=== PATIENT | male | born 1960 | race Caucasian/White ===

== ENCOUNTER 2019-02-27 07:47 | Day surgery (SDC) | payer BC ==
[2019-02-24 11:33] VITALS: BMI 26.2
[~2019-02-27 07:47] MED LIST: LACTATED RINGERS 1,000 ML IV SCH; LIDOCAINE 1% 20 ML VIAL (10MG/ML) FOR IV START INTRADERMA PRN
[2019-02-27 08:09] VITALS: TEMP 97.7
[2019-02-27] MEDS ORDERED: PROPOFOL 10 MG/ML 20 ML VIAL IV ONE (08:27)
[2019-02-27] MEDS ORDERED: LIDOCAINE 1% INJ 10MG/ML (20 ML MDV) ONE (08:27)
--- NOTE | 2019-02-27 09:00 | P.PCN ---
Date of Procedure: 02/27/19 Description of Procedure: BRIEF HISTORY: Patient is a 58-year-old pleasant male scheduled for an elective colonoscopy as a part of screening for malignant neoplasm of the colon. Patient reports 1 prior colonoscopy approximately 10 years ago which he believes was significant for polyps. Denies any abdominal pain, change in bowel habits, diarrhea or constipation in the last 6 months. Denies any family history of colon cancer. Does report intermittent blood with wiping. PROCEDURE PERFORMED: Colonoscopy with polypectomy. PREOPERATIVE DIAGNOSIS: Screening for malignant neoplasm of the colon, last colonoscopy 10 years ago, personal history of colon polyps by report. ESTIMATED BLOOD LOSS: Minimal. IV sedation per Anesthesia. PROCEDURE: After informed consent was obtained, the patient, was brought into the endoscopy unit. IV sedation was administered by Anesthesia under continuous monitoring. Digital rectal examination was normal. Initially the Olympus CF-190 flexible video colonoscope was then inserted in the rectum, gradually advanced into the cecum without any difficulty. Careful examination was performed as the scope was gradually being withdrawn. Ileocecal valve and the appendiceal orifice were visualized and appeared normal. The terminal ileum was intubated and appeared normal. Retroflexion in the cecum with no polyps noted. Prep was excellent. Mucosa of the cecum, ascending colon, transverse colon, descending colon, sigmoid colon, and rectum appeared normal. Diminutive 2 mm sessile polyp on the ileocecal valve removed with cold forcep polypectomy. Diminutive 3 mm sessile polyp in the transverse colon removed with cold forcep polypectomy. Mild scattered sigmoid diverticulosis. Retroflexion was performed in the rectum and no lesions were seen mild internal hemorrhoids. The patient tolerated the procedure well. IMPRESSION: 2 diminutive polyps in the transverse colon and on the ileocecal valve removed with cold forcep polypectomy. Mild sigmoid diverticulosis. Mild internal hemorrhoids. RECOMMENDATIONS: Findings of this examination were discussed with the patient his . Okay to resume high-fiber diet. Okay to resume medications. Anticipate repeat colonoscopy in 5 years pending pathology for polypectomy.
[2019-02-27 09:26] VITALS: BP 106/73; PULSE 58; RESP 18
== END 2019-02-27 09:59 | disposition home or self-care (01) ==
LOC: ORWHC2ENDO 07:47
PROVIDERS: ATTEND Internal Medicine
DX: Z12.11 Encounter for screening for malignant neoplasm of colon (principal); D12.3 Benign neoplasm of transverse colon; K57.30 Diverticulosis of large intestine without perforation or abscess without bleeding; K64.8 Other hemorrhoids; Z86.010 Personal history of colon polyps; Z79.82 Long term (current) use of aspirin; Z79.899 Other long term (current) drug therapy; I25.2 Old myocardial infarction; I25.10 Atherosclerotic heart disease of native coronary artery without angina pectoris; Z87.891 Personal history of nicotine dependence; E78.5 Hyperlipidemia, unspecified; I10 Essential (primary) hypertension
CPT/HCPCS: 88305; 45380; J2001; J2704

== ENCOUNTER 2022-11-04 13:43 | Inpatient (IN) | payer BC ==
[2022-11-04] MEDS ORDERED: HYDROcodone/APAP 5-325MG 1 EACH TAB PO PRN (16:19)
[2022-11-04] MEDS ORDERED: HYDROmorphone 0.5 MG/0.5 ML SYRINGE IVP PRN (16:19)
[2022-11-04] MEDS ORDERED: ACETAMINOPHEN TAB 325 MG TAB PO PRN (16:19)
[2022-11-04] MEDS ORDERED: TEMAZEPAM 15 MG CAP PO PRN (16:19)
[2022-11-04] MEDS ORDERED: NALOXONE 0.4 MG/ML 1 ML VIAL IV PRN (16:19)
[2022-11-04] MEDS ORDERED: ALPRAZolam 0.5 MG TAB PO PRN (16:24)
--- NOTE | 2022-11-04 17:03 | XR ---
EXAMINATION TYPE: XR chest 1V DATE OF EXAM: 11/04/2022 HISTORY: Shortness of breath. COMPARISON: None. TECHNIQUE: Single view of the chest is submitted. FINDINGS: Demonstrated are scattered senescent parenchymal change. There is no evidence for focal infiltrate. The heart is stable. Hilar and mediastinal structures are within normal limits. Degenerative changes are seen of the dorsal spine. IMPRESSION: 1. Chronic changes without evidence for acute pulmonary disease.
[2022-11-04] MEDS: SODIUM CHLORIDE 0.9% 1,000 ML IV SCH (17:14)
[2022-11-04] MEDS ORDERED: HEPARIN SODIUM 1,000 UN/ML (10ML VL) IV PRN (17:31)
[2022-11-04 17:51] LABS: Basophils % (A) 0 %; Eosinophils # (A) 0.1 k/uL (0-0.7); Eosinophils % (A) 2 %; HCT 45.1 % (39.0-53.0); HGB 14.7 gm/dL (13.0-17.5); Lymphocytes # (A) 2.1 k/uL (1.0-4.8); Lymphocytes % (A) 25 %; MCH 31.7 pg (25.0-35.0); MCHC 32.6 g/dL (31.0-37.0); MCV 97.4 fL (80.0-100.0); Mean Platelet Volume 8.9; Monocytes # (A) 0.6 k/uL (0-1.0); Monocytes % (A) 7 %; Neutrophils # (A) 5.4 k/uL (1.3-7.7); Neutrophils % (A) 65 %; Platelet Count 211 k/uL (150-450); RBC 4.63 m/uL (4.30-5.90); WBC 8.3 k/uL (3.8-10.6)
[2022-11-04] MEDS: HEPARIN SOD,PORK IN 0.45% NACL 25,000 UNIT in 0.45% NACL 1 250ML.BAG IV SCH (18:05)
[2022-11-04 18:21] LABS: Partial Thromboplastin Time 41.5 sec (22.0-30.0); Prothrombin Time 10.7 sec (9.0-12.0)
[2022-11-04 19:05] LABS: ALT 27 U/L (4-49); AST 27 U/L (17-59); African American GFR (CKD) >90 (>60 ml/min/1.73 sqM); Albumin 4.1 g/dL (3.5-5.0); Alkaline Phosphatase 51 U/L (38-126); Anion Gap 7 mmol/L; Blood Urea Nitrogen 17 mg/dL (9-20); Calcium 9.2 mg/dL (8.4-10.2); Carbon Dioxide 28 mmol/L (22-30); Chloride 104 mmol/L (98-107); Glucose 132 mg/dL (74-99); Non-African American GFR(CKD) >90 (>60 ml/min/1.73 sqM); Potassium 4.3 mmol/L (3.5-5.1); Sodium 139 mmol/L (137-145); Total Bilirubin 0.3 mg/dL (0.2-1.3); Total Protein 6.6 g/dL (6.3-8.2)
[2022-11-04] MEDS: MULTIVITAMINS, THERA 1 EACH TAB PO SCH (20:07)
[2022-11-04] MEDS: ASPIRIN 81 MG PO SCH (20:07)
[2022-11-04] MEDS: ALPRAZolam 0.25 MG TAB PO PRN (23:07)
[2022-11-05] MEDS: SPIRONOLACTONE 25 MG TAB PO SCH (06:10)
[2022-11-05] MEDS: SODIUM CHLORIDE 0.9% 1,000 ML IV SCH ×2 (06:15→18:24)
[2022-11-05] MEDS: ATORVASTATIN 20 MG TAB PO SCH (06:28)
[2022-11-05] MEDS: METOPROLOL SUCCINATE (ER) 25 MG TAB.ER.24H PO SCH (06:28)
[2022-11-05] MEDS: lisinopriL 5 MG TAB PO SCH (06:28)
[2022-11-05 07:48] LABS: Basophils % (A) 0 %; Eosinophils # (A) 0.2 k/uL (0-0.7); Eosinophils % (A) 2 %; HCT 44.4 % (39.0-53.0); HGB 14.7 gm/dL (13.0-17.5); Lymphocytes # (A) 1.9 k/uL (1.0-4.8); Lymphocytes % (A) 27 %; MCH 32.4 pg (25.0-35.0); MCHC 33.2 g/dL (31.0-37.0); MCV 97.7 fL (80.0-100.0); Mean Platelet Volume 8.1; Monocytes # (A) 0.4 k/uL (0-1.0); Monocytes % (A) 6 %; Neutrophils # (A) 4.3 k/uL (1.3-7.7); Neutrophils % (A) 62 %; Platelet Count 177 k/uL (150-450); RBC 4.54 m/uL (4.30-5.90); RDW 13.3 % (11.5-15.5); WBC 6.9 k/uL (3.8-10.6)
[2022-11-05] MEDS ORDERED: IV FLUID CONTINUATION 1,000 ML IV ONE (08:12)
[2022-11-05 08:45] LABS: ALT 30 U/L (4-49); AST 31 U/L (17-59); African American GFR (CKD) >90 (>60 ml/min/1.73 sqM); Albumin 3.8 g/dL (3.5-5.0); Alkaline Phosphatase 52 U/L (38-126); Anion Gap 4 mmol/L; Blood Urea Nitrogen 15 mg/dL (9-20); Carbon Dioxide 29 mmol/L (22-30); Chloride 105 mmol/L (98-107); Glucose 93 mg/dL (74-99); Non-African American GFR(CKD) >90 (>60 ml/min/1.73 sqM); Potassium 4.4 mmol/L (3.5-5.1); Sodium 138 mmol/L (137-145); Total Bilirubin 0.5 mg/dL (0.2-1.3); Total Protein 6.2 g/dL (6.3-8.2)
--- NOTE | 2022-11-05 09:09 | P.GSCN ---
History of Present Illness Consult date: 11/05/22 Reason for Consult: right brachial artery occlusion Requesting physician: Bing Singh History of present illness: 62 year old gentleman with history of CAD presented to [facility] with acute onset of numbness of the right arm with worsening pain. He was admitted to that hospital and underwent CTA of the upper extremity which demonstrated thrombosis of the right brachial, radial and ulnar artery. He was seen the following day by the vascular surgeon there after he was started on heparin drip and his symptoms started to improve slightly with increased signal in the radial and ulnar arteries. Due to the need for possible thrombectomy and peripheral intervention which [facility] is not equipped for he was then transferred to [facility]. He states last night his hand began to improve and the numbness has been improving. He states his hand feels good and his strength has improved as well. He denies any fevers, chills, chest pain or shortness of breath. Review of Systems All systems: negative (what is mentioned in the PMH or HPI) Past Medical History Past Medical History: Hyperlipidemia, Hypertension, Myocardial Infarction ([place]) Last Myocardial Infarction Date:: 2008 History of Any Multi-Drug Resistant Organisms: None Reported Past Surgical History: Heart Catheterization With Stent Additional Past Surgical History / Comment(s): rt wrist surgery, "cardiac stents were placed: x2 in left and x1 in the right" Past Anesthesia/Blood Transfusion Reactions: No Reported Reaction Date of Last Stent Placement:: 2008 Past Psychological History: No Psychological Hx Reported Smoking Status: Former smoker Past Alcohol Use History: Rare Past Drug Use History: None Reported - Past Family History Father Family Medical History: CVA/TIA, Deep Vein Thrombosis (DVT) Mother Family Medical History: CVA/TIA, Diabetes Mellitus Medications and Allergies Home Medications Medication Instructions Recorded Confirmed Type ALPRAZolam [Xanax] 0.5 mg PO TID PRN 02/24/19 11/04/22 History Aspirin [Adult Low Dose Aspirin EC] 81 mg PO HS 02/24/19 11/04/22 History Metoprolol Succinate [Toprol XL] 25 mg PO DAILY 02/24/19 11/04/22 History Multivitamins, Thera [Multivitamin 1 tab PO HS 02/24/19 11/04/22 History (formulary)] Simvastatin 40 mg PO DAILY 02/24/19 11/04/22 History Spironolactone 25 mg PO DAILY 02/24/19 11/04/22 History lisinopriL [Zestril] 5 mg PO DAILY 02/24/19 11/04/22 History Zolpidem Tartrate [Ambien] 10 mg PO HS PRN 11/04/22 11/04/22 History Allergies Allergy/AdvReac Type Severity Reaction Status Date / Time No Known Allergies Allergy Verified 11/04/22 18:16 Surgical - Exam Vital Signs Temp Pulse Resp BP Pulse Ox 96.2 F L 63 20 127/74 96 11/04/22 15:44 11/04/22 15:44 11/04/22 15:44 11/04/22 15:44 11/04/22 15:44 - General well developed, well nourished, no distress - Eyes PERRL, normal ocular movement - ENT normal pinna, normal nares - Neck no masses - Respiratory normal expansion, normal respiratory effort - Cardiovascular Rhythm: regular - Integumentary no rash, no growths - Neurologic numbness of the distal tips of 3rd and 4th fingers normal coordination - Psychiatric oriented to time, oriented to person, oriented to place, speech is normal Results - Labs 11/05/22 07:20 11/04/22 18:38 Abnormal Lab Results - Last 24 Hours (Table) 11/04/22 11/04/22 11/04/22 Range/Units 17:05 18:38 23:50 APTT 41.5 H 40.3 H (22.0-30.0) sec Glucose 132 H (74-99) mg/dL 11/05/22 Range/Units 07:20 APTT 62.7 H (22.0-30.0) sec Glucose (74-99) mg/dL Diabetes panel 11/04/22 Range/Units 18:38 Sodium 139 (137-145) mmol/L Potassium 4.3 (3.5-5.1) mmol/L Chloride 104 (98-107) mmol/L Carbon Dioxide 28 (22-30) mmol/L BUN 17 (9-20) mg/dL Creatinine 0.74 (0.66-1.25) mg/dL Glucose 132 H (74-99) mg/dL Calcium 9.2 (8.4-10.2) mg/dL AST 27 (17-59) U/L ALT 27 (4-49) U/L Alkaline Phosphatase 51 (38-126) U/L Total Protein 6.6 (6.3-8.2) g/dL Albumin 4.1 (3.5-5.0) g/dL Calcium panel 11/04/22 Range/Units 18:38 Calcium 9.2 (8.4-10.2) mg/dL Albumin 4.1 (3.5-5.0) g/dL Pituitary panel 11/04/22 Range/Units 18:38 Sodium 139 (137-145) mmol/L Potassium 4.3 (3.5-5.1) mmol/L Chloride 104 (98-107) mmol/L Carbon Dioxide 28 (22-30) mmol/L BUN 17 (9-20) mg/dL Creatinine 0.74 (0.66-1.25) mg/dL Glucose 132 H (74-99) mg/dL Calcium 9.2 (8.4-10.2) mg/dL Adrenal panel 11/04/22 Range/Units 18:38 Sodium 139 (137-145) mmol/L Potassium 4.3 (3.5-5.1) mmol/L Chloride 104 (98-107) mmol/L Carbon Dioxide 28 (22-30) mmol/L BUN 17 (9-20) mg/dL Creatinine 0.74 (0.66-1.25) mg/dL Glucose 132 H (74-99) mg/dL Calcium 9.2 (8.4-10.2) mg/dL Total Bilirubin 0.3 (0.2-1.3) mg/dL AST 27 (17-59) U/L ALT 27 (4-49) U/L Alkaline Phosphatase 51 (38-126) U/L Total Protein 6.6 (6.3-8.2) g/dL Albumin 4.1 (3.5-5.0) g/dL Assessment and Plan Assessment: Acute right upper extremity arterial occlusion- improving History of CAD with previous cardiac stents Plan: Upon examination this morning patient has a brachial pulse and multiphasic flow to the radial and ulnar arteries as well as the palmar arch. Hand is warmer now. Evaluated with Dr. Hatfield who states exam is improved. Will hold off any surgery at this time and repeat CTA of the right upper extremity. Patient will require workup for atrial fibrillation and this was discussed with him and his . Recommend oral anticoagulation for at least 1 month and then outpatient arterial Doppler. Thank you for the consultation.
--- NOTE | 2022-11-05 09:37 | P.GSCN ---
History of Present Illness History of present illness: 62-year-old gentleman patient came to ER with history of numbness and cold feeling right hand patient had a CTA which showed occlusion of the brachial artery on the right side and ulnar and radial artery. Patient was on heparin after heparin hand becomes less painful but patient had a no Doppler signal in the brachial radial ulnar artery. Patient has history of coronary artery disease post coronary artery stent placed in the past. Case discussed with the Dr. Cristobal today with we are planning to take patient to go for for possible thrombectomy. His hand is much better today and her brachial radial arterial present by the Doppler signal. Patient has no previous history of atrial fibrillation Neck is supple no bruit appreciated Chest is clear good and both lungs first and second sound present Abdomen is soft nontender Right arm and right hand is warm radial and ulnar artery but the Doppler discussed with Dr. Michael cristobal we will order a CBC PCTA of the right arm with contrast patient will be continued on heparin we'll hold the surgery Past Medical History Past Medical History: Hyperlipidemia, Hypertension, Myocardial Infarction ([place]) Last Myocardial Infarction Date:: 2008 History of Any Multi-Drug Resistant Organisms: None Reported Past Surgical History: Heart Catheterization With Stent Additional Past Surgical History / Comment(s): rt wrist surgery, "cardiac stents were placed: x2 in left and x1 in the right" Past Anesthesia/Blood Transfusion Reactions: No Reported Reaction Date of Last Stent Placement:: 2008 Past Psychological History: No Psychological Hx Reported Smoking Status: Former smoker Past Alcohol Use History: Rare Past Drug Use History: None Reported - Past Family History Father Family Medical History: CVA/TIA, Deep Vein Thrombosis (DVT) Mother Family Medical History: CVA/TIA, Diabetes Mellitus Medications and Allergies Home Medications Medication Instructions Recorded Confirmed Type ALPRAZolam [Xanax] 0.5 mg PO TID PRN 02/24/19 11/04/22 History Aspirin [Adult Low Dose Aspirin EC] 81 mg PO HS 02/24/19 11/04/22 History Metoprolol Succinate [Toprol XL] 25 mg PO DAILY 02/24/19 11/04/22 History Multivitamins, Thera [Multivitamin 1 tab PO HS 02/24/19 11/04/22 History (formulary)] Simvastatin 40 mg PO DAILY 02/24/19 11/04/22 History Spironolactone 25 mg PO DAILY 02/24/19 11/04/22 History lisinopriL [Zestril] 5 mg PO DAILY 02/24/19 11/04/22 History Zolpidem Tartrate [Ambien] 10 mg PO HS PRN 11/04/22 11/04/22 History Allergies Allergy/AdvReac Type Severity Reaction Status Date / Time No Known Allergies Allergy Verified 11/04/22 18:16 Surgical - Exam Vital Signs Temp Pulse Resp BP Pulse Ox 96.2 F L 63 20 127/74 96 11/04/22 15:44 11/04/22 15:44 11/04/22 15:44 11/04/22 15:44 11/04/22 15:44 Results - Labs 11/05/22 07:20 11/05/22 07:20 Abnormal Lab Results - Last 24 Hours (Table) 11/04/22 11/04/22 11/04/22 Range/Units 17:05 18:38 23:50 APTT 41.5 H 40.3 H (22.0-30.0) sec Glucose 132 H (74-99) mg/dL Total Protein (6.3-8.2) g/dL 11/05/22 11/05/22 Range/Units 07:20 07:20 APTT 62.7 H (22.0-30.0) sec Glucose (74-99) mg/dL Total Protein 6.2 L (6.3-8.2) g/dL Diabetes panel 11/04/22 11/05/22 Range/Units 18:38 07:20 Sodium 139 138 (137-145) mmol/L Potassium 4.3 4.4 (3.5-5.1) mmol/L Chloride 104 105 (98-107) mmol/L Carbon Dioxide 28 29 (22-30) mmol/L BUN 17 15 (9-20) mg/dL Creatinine 0.74 0.83 (0.66-1.25) mg/dL Glucose 132 H 93 (74-99) mg/dL Calcium 9.2 9.0 (8.4-10.2) mg/dL AST 27 31 (17-59) U/L ALT 27 30 (4-49) U/L Alkaline Phosphatase 51 52 (38-126) U/L Total Protein 6.6 6.2 L (6.3-8.2) g/dL Albumin 4.1 3.8 (3.5-5.0) g/dL Calcium panel 11/04/22 11/05/22 Range/Units 18:38 07:20 Calcium 9.2 9.0 (8.4-10.2) mg/dL Albumin 4.1 3.8 (3.5-5.0) g/dL Pituitary panel 11/04/22 11/05/22 Range/Units 18:38 07:20 Sodium 139 138 (137-145) mmol/L Potassium 4.3 4.4 (3.5-5.1) mmol/L Chloride 104 105 (98-107) mmol/L Carbon Dioxide 28 29 (22-30) mmol/L BUN 17 15 (9-20) mg/dL Creatinine 0.74 0.83 (0.66-1.25) mg/dL Glucose 132 H 93 (74-99) mg/dL Calcium 9.2 9.0 (8.4-10.2) mg/dL Adrenal panel 11/04/22 11/05/22 Range/Units 18:38 07:20 Sodium 139 138 (137-145) mmol/L Potassium 4.3 4.4 (3.5-5.1) mmol/L Chloride 104 105 (98-107) mmol/L Carbon Dioxide 28 29 (22-30) mmol/L BUN 17 15 (9-20) mg/dL Creatinine 0.74 0.83 (0.66-1.25) mg/dL Glucose 132 H 93 (74-99) mg/dL Calcium 9.2 9.0 (8.4-10.2) mg/dL Total Bilirubin 0.3 0.5 (0.2-1.3) mg/dL AST 27 31 (17-59) U/L ALT 27 30 (4-49) U/L Alkaline Phosphatase 51 52 (38-126) U/L Total Protein 6.6 6.2 L (6.3-8.2) g/dL Albumin 4.1 3.8 (3.5-5.0) g/dL
--- NOTE | 2022-11-05 10:49 | P.CRDCN ---
History of Present Illness History of present illness: HISTORY OF PRESENT ILLNESS: This is a 62-year-old male with a past medical history significant for hypertension, hyperlipidemia, and coronary artery disease with previous myocardial infection 2009 with stent placement 3. Patient follows with a building rental superintendent in [place]. We have been asked to see the patient in consultation for vessel occlusion. Patient examined at the bedside. Patient initially presented to [facility] secondary to right arm feeling cold and being numb. Patient was found to have a right brachial artery thrombus. Patient was initially scheduled for right brachial artery thrombectomy with vascular surgery. However the patients extremity has improved this morning and has a pulse present. His surgery has been canceled for now. He remains on IV heparin. No evidence of atrial fibrillation on telemetry * EKG reveals sinus mechanism with no signs of acute ischemia * Chest xray chronic changes without evidence for acute pulmonary process * Laboratory data: WBC 6.9. Hemoglobin 14.7. Platelet count 177. Sodium 138. Potassium 4.4. BUN 15. Creatinine 0.83. * Current home cardiac medications include aspirin 81 mg at night, metoprolol succinate 25 mg daily, simvastatin 40 mg daily, spironolactone 25 mg daily, and lisinopril 5 mg daily REVIEW OF SYSTEMS: At the time of my exam: CONSTITUTIONAL: Denies fever or chills. HEENT: Denies blurred vision, vision changes, or eye pain. Denies hemoptysis CARDIOVASCULAR: Denies chest pain. Denies orthopnea. Denies PND. Denies palpitations RESPIRATORY: Denies shortness of breath. GASTROINTESTINAL: Denies abdominal pain. Denies nausea or vomiting. HEMATOLOGIC: Denies bleeding disorders. GENITOURINARY: Denies any blood in urine. SKIN: Denies pruitis. Denies rash. PHYSICAL EXAM: VITAL SIGNS: Reviewed. GENERAL: Well-developed in no acute distress. HEENT: Head is normocephalic. Pupils are equal, round. Sclerae anicteric. Mucous membranes of the mouth are moist. Neck supple. No JVD or thyromegaly LUNGS: Respirations even and unlabored. Lungs essentially clear to auscultation bilaterally. HEART: Regular rate and rhythm. S1 and S2 heard. ABDOMEN: Soft. Nondistended. Nontender. EXTREMITIES: Normal range of motion. No clubbing or cyanosis. Peripheral pulses intact. No lower extremity edema NEUROLOGIC: Awake and alert. Oriented x 3. ASSESSMENT: Right brachial artery thrombosis Coronary artery disease with previous stenting 2008 Hypertension Hyperlipidemia PLAN: Obtain 2-D echo to assess cardiac structure and function Continue telemetry monitoring to assess for any evidence of atrial fibrillation Resume home cardiac medications Vascular surgery following. CTA ordered for today. Further recommendations pending patient's course Nurse practitioner note has been reviewed by physician. Signing provider agrees with the documented findings, assessment, and plan of care. Past Medical History Past Medical History: Hyperlipidemia, Hypertension, Myocardial Infarction ([place]) Last Myocardial Infarction Date:: 2008 History of Any Multi-Drug Resistant Organisms: None Reported Past Surgical History: Heart Catheterization With Stent Additional Past Surgical History / Comment(s): rt wrist surgery, "cardiac stents were placed: x2 in left and x1 in the right" Past Anesthesia/Blood Transfusion Reactions: No Reported Reaction Date of Last Stent Placement:: 2008 Past Psychological History: No Psychological Hx Reported Smoking Status: Former smoker Past Alcohol Use History: Rare Past Drug Use History: None Reported - Past Family History Father Family Medical History: CVA/TIA, Deep Vein Thrombosis (DVT) Mother Family Medical History: CVA/TIA, Diabetes Mellitus Medications and Allergies Home Medications Medication Instructions Recorded Confirmed Type ALPRAZolam [Xanax] 0.5 mg PO TID PRN 02/24/19 11/04/22 History Aspirin [Adult Low Dose Aspirin EC] 81 mg PO HS 02/24/19 11/04/22 History Metoprolol Succinate [Toprol XL] 25 mg PO DAILY 02/24/19 11/04/22 History Multivitamins, Thera [Multivitamin 1 tab PO HS 02/24/19 11/04/22 History (formulary)] Simvastatin 40 mg PO DAILY 02/24/19 11/04/22 History Spironolactone 25 mg PO DAILY 02/24/19 11/04/22 History lisinopriL [Zestril] 5 mg PO DAILY 02/24/19 11/04/22 History Zolpidem Tartrate [Ambien] 10 mg PO HS PRN 11/04/22 11/04/22 History Allergies Allergy/AdvReac Type Severity Reaction Status Date / Time No Known Allergies Allergy Verified 11/04/22 18:16 Physical Exam Vitals: Vital Signs Temp Pulse Resp BP Pulse Ox 04/09/23 04:00 97.7 F 74 18 119/78 94 L 11/05/22 02:00 72 18 11/05/22 00:00 98.0 F 72 18 123/81 96 11/04/22 20:00 59 L 18 118/77 98 11/04/22 17:39 97.7 F 77 18 119/79 97 11/04/22 15:44 96.2 F L 63 20 127/74 96 Intake and Output 11/04/22 11/05/22 11/05/22 22:59 06:59 14:59 Intake Total 81.192 70.236 Balance 81.192 70.236 Intake: IV 75 Sodium Chloride 0.9% 1, 75 000 ml @ 75 mls/hr IV . [id number] [facility] Rx#:[id number] Intake, IV Titration 6.192 70.236 Amount Heparin Sod,Pork in 0.45% 6.192 70.236 NaCl 25,000 unit In 0.45 % NaCl 1 250ml.bag @ 10.8 UNITS/KG/HR 8.845 mls/hr IV .Q24H [facility] Rx#: [id number] Other: Voiding Method Toilet Toilet # Voids 1 1 # Bowel Movements 1 Weight 81.9 kg Results 11/05/22 07:20 11/05/22 07:20 Cardiac Enzymes 11/04/22 Range/Units 18:38 AST 27 (17-59) U/L Coagulation 11/04/22 11/04/22 Range/Units 17:05 23:50 PT 10.7 (9.0-12.0) sec APTT 41.5 H 40.3 H (22.0-30.0) sec CBC 11/04/22 11/05/22 Range/Units 17:05 07:20 WBC 8.3 6.9 (3.8-10.6) k/uL RBC 4.63 4.54 (4.30-5.90) m/uL Hgb 14.7 14.7 (13.0-17.5) gm/dL Hct 45.1 44.4 (39.0-53.0) % Plt Count 211 177 (150-450) k/uL Comprehensive Metabolic Panel 11/04/22 Range/Units 18:38 Sodium 139 (137-145) mmol/L Potassium 4.3 (3.5-5.1) mmol/L Chloride 104 (98-107) mmol/L Carbon Dioxide 28 (22-30) mmol/L BUN 17 (9-20) mg/dL Creatinine 0.74 (0.66-1.25) mg/dL Glucose 132 H (74-99) mg/dL Calcium 9.2 (8.4-10.2) mg/dL AST 27 (17-59) U/L ALT 27 (4-49) U/L Alkaline Phosphatase 51 (38-126) U/L Total Protein 6.6 (6.3-8.2) g/dL Albumin 4.1 (3.5-5.0) g/dL Current Medications Generic Name Dose Route Start Last Admin Trade Name Freq PRN Reason Stop Dose Admin Acetaminophen 650 mg 11/04/22 16:19 Acetaminophen Tab 325 Mg Tab PO Q6HR PRN Mild Pain or Fever > 100.5 Hydrocodone Bitart/Acetaminophen 1 each 11/04/22 16:19 Hydrocodone/Apap 5-325mg 1 Each Tab PO Q4HR PRN Moderate Pain (Scale 4 to 6) Alprazolam 0.25 mg 11/04/22 16:19 11/04/22 23:07 Alprazolam 0.25 Mg Tab PO 0.25 mg Q6HR PRN Administration Anxiety Alprazolam 0.5 mg 11/04/22 16:24 Alprazolam 0.5 Mg Tab PO DAILY PRN Anxiety Aspirin 81 mg 11/04/22 21:00 11/04/22 20:07 Aspirin 81 Mg PO 81 mg HS JOSESITO Administration Atorvastatin Calcium 20 mg 11/05/22 09:00 11/05/22 06:28 Atorvastatin 20 Mg Tab PO 20 mg DAILY JOSESITO Administration Heparin Sodium (Porcine) 0 unit 11/04/22 17:31 Heparin Sodium 1,000 Un/Ml (10ml Vl) IV PER PROTOCOL PRN Low PTT Protocol Hydromorphone HCl 0.5 mg 11/04/22 16:19 Hydromorphone 0.5 Mg/0.5 Ml Syringe IVP Q3HR PRN Severe Pain (Scale 7 to 10) Sodium Chloride 1,000 mls @ 75 mls/hr 11/04/22 16:30 11/05/22 06:15 Saline 0.9% IV Not Given .[id number] JOSESITO Heparin Sodium/Sodium Chloride 250 mls @ 8.845 mls/hr 11/04/22 17:45 11/05/22 01:29 25,000 unit/ Sodium Chloride IV 14.8 units/kg/hr .Q24H JOSESITO 12.121 mls/hr Titration Protocol 10.8 UNITS/KG/HR Lisinopril 5 mg 11/05/22 09:00 11/05/22 06:28 Lisinopril 5 Mg Tab PO 5 mg DAILY JOSESITO Administration Metoprolol Succinate 25 mg 11/05/22 09:00 11/05/22 06:28 Metoprolol Succinate (Er) 25 Mg Tab.Er.24h PO 25 mg DAILY JOSESITO Administration Multivitamins 1 each 11/04/22 21:00 11/04/22 20:07 Multivitamins, Thera 1 Each Tab PO 1 each HS JOSESITO Administration Naloxone HCl 0.2 mg 11/04/22 16:19 Naloxone 0.4 Mg/Ml 1 Ml Vial IV Q2M PRN Opioid Reversal Spironolactone 25 mg 11/05/22 09:00 11/05/22 06:10 Spironolactone 25 Mg Tab PO Not Given DAILY JOSESITO Temazepam 15 mg 11/04/22 16:19 Temazepam 15 Mg Cap PO HS PRN Insomnia Intake and Output 11/04/22 11/05/22 11/05/22 22:59 06:59 14:59 Intake Total 81.192 70.236 Balance 81.192 70.236 Intake: IV 75 Sodium Chloride 0.9% 1, 75 000 ml @ 75 mls/hr IV . [id number] [facility] Rx#:[id number] Intake, IV Titration 6.192 70.236 Amount Heparin Sod,Pork in 0.45% 6.192 70.236 NaCl 25,000 unit In 0.45 % NaCl 1 250ml.bag @ 10.8 UNITS/KG/HR 8.845 mls/hr IV .Q24H [facility] Rx#: [id number] Other: Voiding Method Toilet Toilet # Voids 1 1 # Bowel Movements 1 Weight 81.9 kg 11/05/22 07:20 11/04/22 18:38
[2022-11-05] MEDS: HEPARIN SOD,PORK IN 0.45% NACL 25,000 UNIT in 0.45% NACL 1 250ML.BAG IV SCH (18:24)
--- NOTE | 2022-11-05 20:08 | HP ---
HISTORY AND PHYSICAL CHIEF COMPLAINT: Numbness and ischemia of the right upper limb. HISTORY OF PRESENT ILLNESS: This is a 62-year-old gentleman with a past medical history of multiple medical problems including hypertension, hyperlipidemia, CAD stent, presented to [facility] with numbness and ischemia of the right upper limb. The right hand was feeling cold and the evaluation at [facility] showed brachial artery and ulnar and radial artery thrombus and occlusion. The patient was transferred to [facility]. High-dose IV heparin was initiated. The patient was seen by Dr. Hatfield and Dr. Dee in Cardiology. Clinically it seems like the ischemia is improving. Vascular Service is planning a repeat CTA at this time. The patient is being evaluated for any atrial fibrillation. There is no history of any headache, loss of consciousness, or seizures. PAST MEDICAL HISTORY: Reviewed includes hypertension, hyperlipidemia, myocardial infarction, CAD stent. Rest of the history and chart is also reviewed. HOME MEDICATIONS: Zestril. Dose and rest of medications reviewed. ALLERGIES: None. FAMILY HISTORY: History of CVA, TIA, DVT. SOCIAL HISTORY: Previous history of smoking. REVIEW OF SYSTEMS: Fourteen-point review is negative except as mentioned earlier. PHYSICAL EXAMINATION: VITAL SIGNS: Pulse is 56, blood pressure 111/76, respirations 18. CHEST: Clear to auscultation. CARDIOVASCULAR: S1, S2 muffled. ABDOMEN: Soft. NERVOUS SYSTEM: Nonfocal. EXTREMITIES: Right hand is warmer. LABORATORY DATA: Noted. ASSESSMENT: 1. Right brachial artery, radial artery, and ulnar artery thrombosis, rule out a primary cardiac source. 2. History of coronary artery disease stent. 3. Hypertension. 4. Hyperlipidemia. 5. Multiple medical issues. RECOMMENDATIONS AND DISCUSSION: Recommend to continue current medications. Continue symptomatic treatment. I recommend follow up with multiple consultants as mentioned earlier. A 2D echo has been ordered. The patient might require a ELIZABETH. Otherwise, I will also recommend Hematology/Oncology evaluation also because of family history of DVT to rule out any inherited thrombotic conditions. MMODL / IJN: [id number] /
[2022-11-05] MEDS ORDERED: ZOLPIDEM 5 MG TAB PO PRN (21:00)
[2022-11-05] MEDS: MULTIVITAMINS, THERA 1 EACH TAB PO SCH (21:02)
[2022-11-05] MEDS: ASPIRIN 81 MG PO SCH (21:02)
[2022-11-05] MEDS: ALPRAZolam 0.25 MG TAB PO PRN (23:13)
[2022-11-06 06:58] LABS: Basophils % (A) 0 %; Eosinophils # (A) 0.2 k/uL (0-0.7); Eosinophils % (A) 2 %; HCT 41.3 % (39.0-53.0); HGB 13.5 gm/dL (13.0-17.5); Lymphocytes % (A) 23 %; MCH 31.9 pg (25.0-35.0); MCHC 32.7 g/dL (31.0-37.0); MCV 97.6 fL (80.0-100.0); Mean Platelet Volume 8.6; Monocytes # (A) 0.8 k/uL (0-1.0); Monocytes % (A) 9 %; Neutrophils # (A) 5.6 k/uL (1.3-7.7); Neutrophils % (A) 64 %; Platelet Count 158 k/uL (150-450); RBC 4.23 m/uL (4.30-5.90); RDW 12.8 % (11.5-15.5); WBC 8.8 k/uL (3.8-10.6)
[2022-11-06 07:19] LABS: African American GFR (CKD) >90 (>60 ml/min/1.73 sqM); Anion Gap 6 mmol/L; Blood Urea Nitrogen 16 mg/dL (9-20); Calcium 8.8 mg/dL (8.4-10.2); Carbon Dioxide 26 mmol/L (22-30); Chloride 106 mmol/L (98-107); Glucose 88 mg/dL (74-99); Non-African American GFR(CKD) >90 (>60 ml/min/1.73 sqM); Potassium 4.1 mmol/L (3.5-5.1); Sodium 138 mmol/L (137-145)
[2022-11-06] MEDS: METOPROLOL SUCCINATE (ER) 25 MG TAB.ER.24H PO SCH (08:34)
[2022-11-06] MEDS: SPIRONOLACTONE 25 MG TAB PO SCH (08:34)
[2022-11-06] MEDS: ATORVASTATIN 20 MG TAB PO SCH (08:34)
[2022-11-06] MEDS: SODIUM CHLORIDE 0.9% 1,000 ML IV SCH (08:34)
[2022-11-06] MEDS: lisinopriL 5 MG TAB PO SCH (08:34)
--- NOTE | 2022-11-06 09:43 | P.PN ---
Subjective Progress Note Date: 11/06/22 Principal diagnosis: Right upper extremity ischemia Patient is seen and examined today as a follow-up for right upper extremity ischemia. Patient currently remains on a heparin drip. He is scheduled to go for CT angiogram of the right upper extremity later this morning. States the pain has significantly improved, he does state that he has a little numbness and tingling in his right hand and fingertips. Arm and hand as well as fingers are warm to touch. He denies any shortness of breath or chest pain. Has full range of motion of the right upper extremity. Objective - Vital Signs Vital signs: Vital Signs Temp 98.4 F 11/06/22 04:17 Pulse 61 11/06/22 04:17 Resp 15 11/06/22 04:17 BP 95/58 11/06/22 04:17 Pulse Ox 95 11/06/22 07:54 FiO2 Intake & Output 11/05/22 11/06/22 11/06/22 18:59 06:59 18:59 Intake Total 409.572 75 410.704 Output Total 0 Balance 409.572 75 410.704 Intake: Intake, IV Titration 173.572 75 170.704 Amount Heparin Sod,Pork in 0.45% 173.572 170.704 NaCl 25,000 unit In 0.45 % NaCl 1 250ml.bag @ 10.8 UNITS/KG/HR 8.845 mls/hr IV .Q24H [facility] Rx#: [id number] Sodium Chloride 0.9% 1, 75 000 ml @ 75 mls/hr IV . [id number] [facility] Rx#:[id number] Oral 236 240 Output: Urine 0 Other: Voiding Method Toilet # Voids 0 1 - Exam General appearance: The patient is alert, oriented, appears in no acute dist ress. HET: Head is normocephalic and atraumatic. Pupils are equal and reactive. Neck: Supple. Heart: Regular. Lungs: Equal expansion, normal respiratory effort. Abdomen: Soft, nontender, nondistended. Extremities: Normal skin color and turgor. Right upper extremity palpable brachial pulse, nonpalpable radial and ulnar pulse. Radial and ulnar artery with multiphasic signal. Good capillary refill, warm to the touch. Patient has good range of motion, sensorimotor intact. Neurological: No focal deficits. Strength and sensation are grossly intact. - Labs CBC & Chem 7: 11/06/22 05:51 11/06/22 05:51 Labs: Abnormal Lab Results - Last 24 Hours (Table) 11/06/22 11/06/22 Range/Units 05:51 05:51 RBC 4.23 L (4.30-5.90) m/uL APTT 92.7 H (22.0-30.0) sec Assessment and Plan Assessment: 1. Right upper extremity brachial artery thrombus 2. History of CAD with previous cardiac stents Plan: Continue heparin drip for now, may transition to oral anticoagulation. Patient scheduled for CT angiogram right upper extremity later this morning. Right upper extremity CTA reviewed by Dr. Dee. Recommend right upper extremity thrombectomy, however also did discuss with patient he could try outpatient oral anticoagulation and follow-up with vascular surgery. Patient opted to be discharged on oral anticoagulation. Discussed with patient if he has any increased pain, discoloration, or swelling in the right upper extremity he sh ould return to the emergency department immediately. Recommend cardiology workup for atrial fibrillation, this can be done as an outpatient Recommend oral anticoagulation for at least one month Thank you for this consultation. The impression and plan of care has been dictated as directed. I performed a history and examination of this patient, discussed the same with the dictator. I agree with the dictator's note ,documented as a scribe. Any additional findings or plans will be noted.
[2022-11-06 10:51] VITALS: BP 104/71; RESP 16; TEMP 98.2
--- NOTE | 2022-11-06 11:25 | CT ---
EXAMINATION TYPE: CT angio upper extremity RT DATE OF EXAM: 11/06/2022 COMPARISON: None HISTORY: RT hand ischemia, thrombosis. CT DLP: 325.8 mGycm Automated exposure control for dose reduction was used. Contrast: None Technique: Axial images 2 mm thick sections. Reconstructed images in the coronal and sagittal plane. FINDINGS: Axillary and brachial arteries are patent. At the antecubital fossa the brachial artery is nonvisuali zed. However the radial artery reconstitutes from collateral flow. The ulnar artery is not identified . Radial artery extends to the level of the wrist and into the dorsum of the hand. Contrast within th e superficial and deep palmar arch are not identified. IMPRESSION: 1. NONVISUALIZATION OF THE ULNAR ARTERY. 2. POSSIBLE FOCAL OBSTRUCTION AT THE ANTECUBITAL FOSSA OF THE DISTAL BRACHIAL ARTERY WITH RECONSTITUT ION OF THE RADIAL ARTERY FROM COLLATERAL FLOW.
--- NOTE | 2022-11-06 13:38 | P.PN ---
Subjective Progress Note Date: 11/06/22 HISTORY OF PRESENT ILLNESS: This is a 62-year-old male with a past medical history significant for hypertension, hyperlipidemia, and coronary artery disease with previous myocardial infection 2008 with stent placement 3. Patient follows with a junk dealer in [place]. We have been asked to see the patient in consultation for vessel occlusion. Patient examined at the bedside. Patient initially presented to [facility] secondary to right arm feeling cold and being numb. Patient was found to have a right brachial artery thrombus. Patient was initially scheduled for right brachial artery thrombectomy with vascular surgery. However the patients extremity has improved this morning and has a pulse present. His surgery has been canceled for now. He remains on IV heparin. No evidence of atrial fibrillation on telemetry * EKG reveals sinus mechanism with no signs of acute ischemia * Chest xray chronic changes without evidence for acute pulmonary process * Laboratory data: WBC 6.9. Hemoglobin 14.7. Platelet count 177. Sodium 138. Potassium 4.4. BUN 15. Creatinine 0.83. * Current home cardiac medications include aspirin 81 mg at night, metoprolol succinate 25 mg daily, simvastatin 40 mg daily, spironolactone 25 mg daily, and lisinopril 5 mg daily 11/06 Patient is getting echocardiogram done at this time. He is on a heparin drip. He is scheduled for CTA today at 10:30. Patient denies having any chest pain or shortness of breath. He is to be seen by oncology today as well. Patient has had no episodes of atrial fibrillation. Vital signs are stable. PHYSICAL EXAM: VITAL SIGNS: Reviewed. GENERAL: Well-developed in no acute distress. HEENT: Head is normocephalic. Pupils are equal, round. Sclerae anicteric. Mucous membranes of the mouth are moist. Neck supple. No JVD or thyromegaly LUNGS: Respirations even and unlabored. Lungs essentially clear to auscultation bilaterally. HEART: Regular rate and rhythm. S1 and S2 heard. ABDOMEN: Soft. Nondistended. Nontender. EXTREMITIES: Normal range of motion. No clubbing or cyanosis. Peripheral pulses intact. No lower extremity edema NEUROLOGIC: Awake and alert. Oriented x 3. ASSESSMENT: Right brachial artery thrombosis Coronary artery disease with previous stenting , 2008 Hypertension Hyperlipidemia PLAN: Obtain 2-D echo to assess cardiac structure and function-report is pending Continue telemetry monitoring to assess for any evidence of atrial fibrillation Resume home cardiac medications Vascular surgery following. CTA ordered for today. Recommend patient start on eliquis if okay with vascular surgery and discontinue heparin drip. Recommend long-term anticoagulation. Patient is cleared for discharge from cardiology. He has been instructed to follow-up with his junk dealer for outpatient event monitor. Nurse practitioner note has been reviewed by physician. Signing provider agrees with the documented findings, assessment, and plan of care. Objective - Vital Signs Vital signs: Vital Signs Temp 98.4 F 11/06/22 04:17 Pulse 61 11/06/22 04:17 Resp 15 11/06/22 04:17 BP 95/58 11/06/22 04:17 Pulse Ox 95 11/06/22 07:54 FiO2 Intake & Output 11/05/22 11/06/22 11/06/22 18:59 06:59 18:59 Intake Total 409.572 75 410.704 Output Total 0 Balance 409.572 75 410.704 Intake: Intake, IV Titration 173.572 75 170.704 Amount Heparin Sod,Pork in 0.45% 173.572 170.704 NaCl 25,000 unit In 0.45 % NaCl 1 250ml.bag @ 10.8 UNITS/KG/HR 8.845 mls/hr IV .Q24H [facility] Rx#: [id number] Sodium Chloride 0.9% 1, 75 000 ml @ 75 mls/hr IV . [id number] [facility] Rx#:[id number] Oral 236 240 Output: Urine 0 Other: Voiding Method Toilet # Voids 0 1 - Labs CBC & Chem 7: 11/06/22 05:51 11/06/22 05:51 Labs: Abnormal Lab Results - Last 24 Hours (Table) 11/06/22 11/06/22 Range/Units 05:51 05:51 RBC 4.23 L (4.30-5.90) m/uL APTT 92.7 H (22.0-30.0) sec
[2022-11-06 14:23] VITALS: PULSE 66
[2022-11-06] MEDS ORDERED: APIXABAN 5 MG TAB PO SCH (16:00)
--- NOTE | 2022-11-06 18:01 | CA ---
Transthoracic Echo Report Name: Walter Chavez Age: 62 Gender: M : 1960 Exam Date: 11/06/2022 09:16 Exam Location: [facility] Ht (in): 71 Wt (lb): 180 Ordering Physician: Bing Singh MD Attending/Referring Phys: Water Valve Mechanic Gwen Toure RDCS Procedure CPT: Indications: occlusion Cardiac Hx: Technical Quality: Contrast 1: Total Dose (mL): Contrast 2: Total Dose (mL): MEASUREMENTS (Male / Female) Normal Values 2D ECHO LV Diastolic Diameter PLAX 5.4 cm 4.2 - 5.9 / 3.9 - 5.3 cm LV Diastolic Volume MOD 4C 83.4 cm??? LV Systolic Volume MOD 4C 48.8 cm??? LV Ejection Fraction MOD 4C 41.4 % LV Diastolic Length 4C 8.4 cm LV Systolic Length 4C 7.3 cm LA Volume 24.7 cm??? 18 - 58 / 22 - 52 cm??? M-MODE Aortic Root Diameter MM 2.8 cm AV Cusp Separation MM 1.9 cm DOPPLER AV Peak Velocity 126.4 cm/s AV Peak Gradient 6.4 mmHg LVOT Peak Velocity 107.4 cm/s LVOT Peak Gradient 4.6 mmHg MV Area PHT 3.7 cm??? MR Peak Velocity 417.6 cm/s MR Peak Gradient 69.8 mmHg Mitral E Point Velocity 63.7 cm/s Mitral A Point Velocity 62.7 cm/s Mitral E to A Ratio 1.0 MV Deceleration Time 207.2 ms TR Peak Velocity 153.9 cm/s TR Peak Gradient 9.5 mmHg FINDINGS Left Ventricle [place] hypokinetic. Left ventricular dilatation. Left ventricular ejection fraction is estimated at 45-50 %. Right Ventricle Normal right ventricular size. Right Atrium Normal right atrial size. Left Atrium Normal left atrial size. Mitral Valve Mild mitral regurgitation. Aortic Valve Trileaflet aortic valve. Tricuspid Valve Mild tricuspid regurgitation. Pulmonic Valve Trace pulmonic regurgitation. Pericardium No pericardial or pleural effusion. Aorta Normal size aortic root and proximal ascending aorta. CONCLUSIONS Atypical akinesis Reduced LV systolic function ejection fraction 45-50% Previewed by: Dr. Brandon Quintana MD (Electronically Signed) Final Date: 06 November 2022 18:00
--- NOTE | 2022-11-06 22:19 | P.CONS ---
History of Present Illness - Reason for Consult Consult date: 11/06/22 coagulopathy Requesting physician: Bing Singh - Chief Complaint arterial occlusion - History of Present Illness Mr. Chavez is a 62 yo male with a PMH HTN, hyperlipidemia, CAD, [place] with cardiac stent placement currently admitted for rt arm brachial arterial thrombus. He has been seen by Vascular and Cardiology. He presented to [facility] with cold, numb extremity. He denied any injury or precipitating event that he can think of other then he slept on the arm. His symptoms improved and he is no longer scheduled for surgery. He has no personal Hx of venous thromboembolism, both parents had CVA in later in their lives, his father has a DVT he thinks in his 80's, does not know if it was provoked. He was a smoker until 2008. Denies having covid infection. Review of Systems 10 point ROS is neg except as stated in HPI Past Medical History Past Medical History: Hyperlipidemia, Hypertension, Myocardial Infarction (DE) Last Myocardial Infarction Date:: 2008 History of Any Multi-Drug Resistant Organisms: None Reported Past Surgical History: Heart Catheterization With Stent Additional Past Surgical History / Comment(s): rt wrist surgery, "cardiac stents were placed: x2 in left and x1 in the right" Past Anesthesia/Blood Transfusion Reactions: No Reported Reaction Date of Last Stent Placement:: 2008 Past Psychological History: No Psychological Hx Reported Smoking Status: Former smoker Past Alcohol Use History: Rare Past Drug Use History: None Reported - Past Family History Father Family Medical History: CVA/TIA, Deep Vein Thrombosis (DVT) Mother Family Medical History: CVA/TIA, Diabetes Mellitus Medications and Allergies Home Medications Medication Instructions Recorded Confirmed Type ALPRAZolam [Xanax] 0.5 mg PO TID PRN 02/24/19 11/04/22 History Aspirin [Adult Low Dose Aspirin EC] 81 mg PO HS 02/24/19 11/04/22 History Metoprolol Succinate [Toprol XL] 25 mg PO DAILY 02/24/19 11/04/22 History Multivitamins, Thera [Multivitamin 1 tab PO HS 02/24/19 11/04/22 History (formulary)] Simvastatin 40 mg PO DAILY 02/24/19 11/04/22 History Spironolactone 25 mg PO DAILY 02/24/19 11/04/22 History lisinopriL [Zestril] 5 mg PO DAILY 02/24/19 11/04/22 History Zolpidem Tartrate [Ambien] 10 mg PO HS PRN 11/04/22 11/04/22 History Acetaminophen Tab [Tylenol] 650 mg PO Q6HR PRN tab 11/06/22 Rx Apixaban [Eliquis Starter Pack 5 - 10 mg PO DIRECTED 30 Days 11/06/22 Rx (for VTE)] #1 each Allergies Allergy/AdvReac Type Severity Reaction Status Date / Time No Known Allergies Allergy Verified 11/04/22 18:16 Physical Exam Vitals: Vital Signs Temp Pulse Pulse Resp BP Pulse Ox 11/06/22 07:54 95 11/06/22 04:17 98.4 F 61 58 L 15 95/58 95 11/05/22 23:16 97.7 F 74 18 106/62 94 L 11/05/22 20:00 98.2 F 76 20 126/76 95 11/05/22 16:00 98.1 F 60 16 104/68 96 11/05/22 11:30 58 L 16 123/78 99 11/05/22 09:06 97 Intake and Output 11/05/22 11/06/22 11/06/22 22:59 06:59 14:59 Intake Total 366.572 170.704 Output Total 0 Balance 366.572 0 170.704 Intake: Intake, IV Titration 248.572 170.704 Amount Heparin Sod,Pork in 0.45% 173.572 170.704 NaCl 25,000 unit In 0.45 % NaCl 1 250ml.bag @ 10.8 UNITS/KG/HR 8.845 mls/hr IV .Q24H [facility] Rx#: [id number] Sodium Chloride 0.9% 1, 75 000 ml @ 75 mls/hr IV . [id number] [facility] Rx#:[id number] Oral 118 Output: Urine 0 Other: Voiding Method Toilet # Voids 1 - Constitutional General appearance: average body habitus, cooperative, no acute distress - EENT Eyes: anicteric sclerae, EOMI ENT: hearing grossly normal - Neck Neck: no lymphadenopathy - Respiratory Respiratory: bilateral: CTA - Cardiovascular Rhythm: regular Heart sounds: normal: S1, S2 Abnormal Heart Sounds: no systolic murmur, no diastolic murmur, no rub, no S3 Gallop, no S4 Gallop, no click, no other leg Peripheral Edema: bilateral: Trace - Gastrointestinal General gastrointestinal: no absent bowel sounds, no decreased bowel sounds, no distended, no hepatomegaly, no hyperactive bowel sounds, normal bowel sounds, no organomegaly, no rigid, no scaphoid, soft, no splenomegaly, no tenderness, no umbilical hernia, no ventral hernia - Integumentary Integumentary: normal - Neurologic Neurologic: CNII-XII intact - Musculoskeletal Musculoskeletal: strength equal bilaterally - Psychiatric Psychiatric: A&O x's 3, appropriate affect, intact judgment & insight Results CBC & Chem 7: 11/06/22 05:51 11/06/22 05:51 Labs: Abnormal Lab Results - Last 24 Hours (Table) 11/06/22 11/06/22 Range/Units 05:51 05:51 RBC 4.23 L (4.30-5.90) m/uL APTT 92.7 H (22.0-30.0) sec Assessment and Plan (1) Arterial occlusion Status: Acute Priority: High Code(s): I70.90 - UNSPECIFIED ATHEROSCLEROSIS SNOMED Code(s): 3967253 Plan: arterial occlusion -no Vascular intervention planned as symptoms improved, on exam RUE is warm with brisk cap refill -Cardiology has started the pt on eliquis -Agree with anticoagulation, pt was on antiplatelet therapy with asa on admit -no history of covid infection -have taken pt info. If Plug Drill Operator feels that hypercoaguable work up appropriate will sched pt for the same.
--- NOTE | 2022-11-10 18:51 | P.DS ---
Providers Date of admission: 11/04/22 15:31 Expected date of discharge: 11/06/22 Attending physician: Bing Singh Consults: 11/04/22 16:23 Consult Physician Routine Consulting Provider: Adolph Dee Consult Reason/Comments: occlusion Do you want consulting provider notified?: Already Contacted Consult Physician Routine Consulting Provider: Chuy Hatfield Consult Reason/Comments: occlusion Do you want consulting provider notified?: Already Contacted Consult Physician Routine Consulting Provider: Lei Moncada Consult Reason/Comments: vessel occlusion Do you want consulting provider notified?: Yes 11/05/22 11:54 Consult Physician Routine Consulting Provider: Isaias Chacon Consult Reason/Comments: inherited thrombotic condition? Do you want consulting provider notified?: Yes Primary care physician: Stated None Hospital Course: Final diagnosis Right brachial artery, radial artery and ulnar artery thrombosis, rule out primary cardiac source History of coronary artery disease with stent Hypertension Hyperlipidemia Discharge disposition Patient is being discharged in a stable condition with guarded prognosis to home. Patient will follow-up with Dr. Chou in the outpatient setting upon discharge. Patient is to continue with kristina and close outpatient follow-up with vascular surgery this week as scheduled. Total time taken is greater than 35 minutes. Hospital course This is a 62-year-old male who was recently admitted with right arm feeling of numbness and coldness and found to have brachial artery and ulnar and radial artery thrombus with occlusion patient was sent to [facility] from [facility] for further vascular surgery evaluation. Patient does have right upper extremity vascular deficiency and was maintained on IV heparin. Patient is being started on oral anticoagulant and cleared by vascular surgery for close outpatient follow-up this week. Patient to undergo cardiac workup as well for possible atrial fibrillation. Please refer to consultation notes for further HPI. Currently no reports of chest pain, shortness of breath, or palpitations. Patient is afebrile. No reports of nausea or vomiting and patient is tolerating diet. Patient will be discharged home with guarded prognosis today. Physical exam: Gen: This is a 62-year-old male is awake, alert and oriented 3, well-developed, well-nourished. HEENT: Head is atraumatic, normocephalic. Pupils equal, round. Sclerae is anicteric. NECK: Supple. No JVD. No lymphadenopathy. No thyromegaly. LUNGS: Clear to auscultation. No wheezes or rhonchi. No intercostal retractions. HEART: Regular rate and rhythm. No murmur. ABDOMEN: Soft. Bowel sounds are present. No masses. No tenderness. EXTREMITIES: No pedal edema. No calf tenderness. Right upper extremity with some mild swelling noted NEUROLOGICAL: Patient is awake, alert and oriented x3. Cranial nerves 2 through 12 are grossly intact. Please refer to medication reconciliation sheet for a list of medications. The impression and plan of care has been dictated by Glendy Villalobos, Nurse Practitioner as directed. Dr. Wander MD I have performed a history and examination and MDM of this patient, discussed the same with the dictator, and agree with the dictator's assessment and plan as written ,documented as a scribe. Based on total visit time, I have performed more than 50% of the visit. Patient Condition at Discharge: Fair Plan - Discharge Summary Discharge Rx Participant: Yes New Discharge Prescriptions: New Apixaban [Eliquis Starter Pack (for VTE)] 5 - 10 mg PO DIRECTED 30 Days #1 each Acetaminophen Tab [Tylenol] 650 mg PO Q6HR PRN tab PRN Reason: Mild Pain Or Fever > 100.5 Continue Multivitamins, Thera [Multivitamin (formulary)] 1 tab PO HS Simvastatin 40 mg PO DAILY Aspirin [Adult Low Dose Aspirin EC] 81 mg PO HS ALPRAZolam [Xanax] 0.5 mg PO TID PRN PRN Reason: Anxiety Spironolactone 25 mg PO DAILY Metoprolol Succinate [Toprol XL] 25 mg PO DAILY lisinopriL [Zestril] 5 mg PO DAILY Zolpidem Tartrate [Ambien] 10 mg PO HS PRN PRN Reason: Insomnia Discharge Medication List ALPRAZolam [Xanax] 0.5 mg PO TID PRN 02/24/19 [History] Aspirin [Adult Low Dose Aspirin EC] 81 mg PO HS 02/24/19 [History] Metoprolol Succinate [Toprol XL] 25 mg PO DAILY 02/24/19 [History] Multivitamins, Thera [Multivitamin (formulary)] 1 tab PO HS 02/24/19 [History] Simvastatin 40 mg PO DAILY 02/24/19 [History] Spironolactone 25 mg PO DAILY 02/24/19 [History] lisinopriL [Zestril] 5 mg PO DAILY 02/24/19 [History] Zolpidem Tartrate [Ambien] 10 mg PO HS PRN 11/04/22 [History] Acetaminophen Tab [Tylenol] 650 mg PO Q6HR PRN tab 11/06/22 [Rx] Apixaban [Eliquis Starter Pack (for VTE)] 5 - 10 mg PO DIRECTED 30 Days #1 each 11/06/22 [Rx] Follow up Appointment(s)/Referral(s): Adolph Dee DO [STAFF PHYSICIAN] - 1 Week (Office is closed, please call tomorrow to schedule follow up appointment. If issue with arm call office and notify Dr Dee right away) Kavin Lamas DO [REFERRING] - 11/13/22 1:00 pm ([address] [facility] [place] [address] [address] , [place] [address] ) Patient Instructions/Handouts: Deep Vein Thrombosis (DC), Safe Use of Anticoagulants (DC) Activity/Diet/Wound Care/Special Instructions: Activity Limited until follow-up Follow-up with primary care provider on discharge continue taking anticoagulant 10 mg twice daily for the first week and then titrate down to 5 mg daily thereafter Follow-up with cardiology this week Follow-up with vascular surgery as scheduled Continue taking medications as prescribed Discharge Disposition: HOME SELF-CARE
== END 2022-11-06 16:49 | disposition home or self-care (01) | DRG 300 ==
LOC: 3SCARD 15:31
PROVIDERS: ADMIT Hospitalist; ATTEND Hospitalist
PROC: B246ZZZ Ultrasonography of Right and Left Heart (ICD-10-PCS; principal; 2022-11-06)
DX: I74.2 Embolism and thrombosis of arteries of the upper extremities (principal); D68.9 Coagulation defect, unspecified; I25.10 Atherosclerotic heart disease of native coronary artery without angina pectoris; Z95.5 Presence of coronary angioplasty implant and graft; Z53.8 Procedure and treatment not carried out for other reasons; I10 Essential (primary) hypertension; I08.1 Rheumatic disorders of both mitral and tricuspid valves; I99.8 Other disorder of circulatory system; E78.5 Hyperlipidemia, unspecified; I25.2 Old myocardial infarction; Z79.82 Long term (current) use of aspirin; Z79.899 Other long term (current) drug therapy; Z87.891 Personal history of nicotine dependence
CPT/HCPCS: 71045; 80048; 80053; 85025; 85610; 85730; 93306; 94760